=== PATIENT | female | born 1990 | race Caucasian/White ===

== ENCOUNTER 2017-06-23 22:03 | Inpatient (IN) | payer MEDICAID ==
[2017-06-23] MEDS: Lactated Ringers 1,000 ML IV SCH (23:25)
[2017-06-23] MEDS ORDERED: Nalbuphine 20 MG/1 ML Amp IVPUSH PRN (23:28)
[2017-06-23] MEDS ORDERED: Sodium Chloride 0.9% 10 ML Syringe FLUSH PRN (23:28)
[2017-06-23] MEDS ORDERED: Lidocaine 1% 50 ML MDV INJECT ONE (23:28)
[2017-06-23] MEDS ORDERED: Ondansetron 4 MG/2 ML SDV IVPUSH PRN (23:28)
[2017-06-23] MEDS ORDERED: Oxytocin/Lactated Ringers 10 UNIT/1,000 ML BAG IV SCH (23:30)
[2017-06-23] MEDS ORDERED: Bupivacaine/fentaNYL/NS 100 ML Bag EPIDUR SCH (23:45)
[2017-06-23] MEDS ORDERED: ePHEDrine 50 MG/ML SDV IVPUSH PRN (23:59)
[2017-06-23] MEDS ORDERED: diphenhydrAMINE 50 MG/ML SDV IVPUSH PRN (23:59)
[2017-06-23] MEDS ORDERED: fentaNYL 100 MCG/2 ML SDV EPIDUR PRN (23:59)
[2017-06-24] MEDS: Lactated Ringers 1,000 ML IV SCH (00:25)
--- NOTE | 2017-06-24 00:32 | PCM.PREANE ---
Preanesthetic Assessment - Anesthesia/Transfusion/Family Hx Anesthesia History: Prior Anesthesia Without Reaction Family History of Anesthesia Reaction: No - Review of Systems General: No Symptoms Pulmonary: No Symptoms Cardiovascular: No Symptoms Gastrointestinal: No Symptoms Neurological: No Symptoms Other: Reports: None - Physical Assessment Pulse: 99 O2 Sat by Pulse Oximetry: 98 Respiratory Rate: 24 Blood Pressure: 150/84 Temperature: 37.2 C ASA Class: 2 Mental Status: Alert & Oriented x3 Airway Class: Mallampati = 2 Dentition: Reports: Normal Dentition Thyro-Mental Finger Breadths: 3 Mouth Opening Finger Breadths: 3 ROM/Head Extension: Full Lungs: Clear to Auscultation, Normal Respiratory Effort Cardiovascular: Regular Rate, Regular Rhythm - Lab Values: Laboratory Last Values WBC 9.04 K/mm3 (3.98-10.04) 06/23/17 23:32 RBC 4.40 M/mm3 (3.98-5.22) 06/23/17 23:32 Hgb 12.0 gm/L (11.2-15.7) 06/23/17 23:32 Hct 36.8 % (34.1-44.9) 06/23/17 23:32 MCV 83.6 fl (79.4-94.8) 06/23/17 23:32 MCH 27.3 pg (25.6-32.2) 06/23/17 23:32 MCHC 32.6 g/dl (32.2-35.5) 06/23/17 23:32 RDW Std Deviation 43.4 fL (36.4-46.3) 06/23/17 23:32 Plt Count 251 K/mm3 (182-369) 06/23/17 23:32 MPV 11.7 fl (9.4-12.3) 06/23/17 23:32 - Allergies Allergies/Adverse Reactions: Allergies Allergy/AdvReac Type Severity Reaction Status Date / Time dextromethorphan Allergy Other Unverified 06/23/17 23:42 [From Guiatuss] [email or web address] [From Guiatuss] Allergy Other Unverified 06/23/17 23:42 pseudoephedrine Allergy Other Unverified 06/23/17 23:42 [From Guiatuss] - Acknowledgements Anesthesia Type Planned: Spinal Pt an Appropriate Candidate for the Planned Anesthesia: Yes Alternatives and Risks of Anesthesia Discussed w Pt/Guardian: Yes Pt/Guardian Understands and Agrees with Anesthesia Plan: Yes PreAnesthesia Questionnaire - CURRENT (IN HOUSE) MEDS Current Meds: Current Medications Diphenhydramine HCl (Benadryl) 25 mg IVPUSH Q6H PRN PRN Reason: Pruritis Ephedrine Sulfate (Ephedrine Sulfate) 5 mg IVPUSH ASDIRECTED PRN PRN Reason: Hypotension Fentanyl (Sublimaze) 100 mcg EPIDUR ONETIME PRN PRN Reason: Pain Fentanyl/Bupivacaine HCl (Fentanyl/Bupivacaine/Ns 2 Mcg-0.125% 100 Ml) 100 ml EPIDUR ASDIRECTED VIC Lactated Ringer's (Ringers, Lactated) 1,000 mls @ 100 mls/hr IV ASDIRECTED VIC Oxytocin/Lactated Ringer's (Pitocin In Lr 10 Units/1,000 Ml) 10 unit in 1,000 mls @ 500 mls/hr IV .CONTINUOUS VIC Nalbuphine HCl (Nubain) 10 mg IVPUSH Q2H PRN PRN Reason: Pain (moderate 4-6) Ondansetron HCl (Zofran) 4 mg IVPUSH Q4H PRN PRN Reason: Nausea/Vomiting Sodium Chloride (Saline Flush) 10 ml FLUSH ASDIRECTED PRN PRN Reason: Keep Vein Open Discontinued Medications Lidocaine HCl (Xylocaine 1%) 20 ml INJECT ONETIME ONE Stop: 06/23/17 23:29
[2017-06-24] MEDS ORDERED: Witch Hazel Medicated Pads 100/Jar TOP PRN (01:51)
[2017-06-24] MEDS ORDERED: Benzocaine/Menthol 20%-0.5% Spray 56 GM Canister TOP PRN (01:51)
[2017-06-24] MEDS ORDERED: Lanolin 100% Cream 7 GM Tube TOP PRN (01:51)
[2017-06-24] MEDS: Ibuprofen 600 MG Tab PO PRN ×4 (02:17→22:17)
--- NOTE | 2017-06-24 06:49 | PCM48HPAN ---
Post Anesthesia Note - EVALUATION WITHIN 48HRS OF ANESTHETIC Vital Signs in Normal Range: Yes Patient Participated in Evaluation: Yes Respiratory Function Stable: Yes Airway Patent: Yes Cardiovascular Function Stable: Yes Hydration Status Stable: Yes Pain Control Satisfactory: Yes Nausea and Vomiting Control Satisfactory: Yes Mental Status Recovered: Yes
[2017-06-24] MEDS ORDERED: Hydrocortisone Acetate 25 MG Supp RECTAL PRN ×2 (16:33→21:24)
[2017-06-24] MEDS ORDERED: Hydrocortisone 1% Crm 30 GM Tube TOP PRN (17:20)
[2017-06-24] MEDS ORDERED: Acetaminophen/oxyCODONE 325-5 MG Tab PO ONE (21:22)
[2017-06-24] MEDS: Docusate Sodium 100 MG Cap PO SCH (22:13)
[2017-06-25] MEDS: Ibuprofen 600 MG Tab PO PRN (08:24)
[2017-06-25] MEDS: Docusate Sodium 100 MG Cap PO SCH (08:25)
--- NOTE | 2017-06-25 08:53 | PCM.DCSUM1 ---
Discharge Summary - Discharge Data Discharge Date: 06/25/17 Discharge Disposition: Home, Self-Care 01 Condition: Good - Patient Instructions Diet: Usual Diet as Tolerated Activity: No Strenuous Activities Driving: May Drive Today Showering/Bathing: May Shower Notify Provider of: Fever, Increased Pain, Swelling and Redness, Drainage, Nausea and/or Vomiting - Discharge Plan Home Medications: Home Meds Pnv No.122/Iron/Folic Acid [ Multi Tablet] 1 each PO DAILY 06/24/17 [ History] Docusate Sodium [Colace] 100 mg PO BID cap 06/25/17 [Rx] Hydrocortisone Acetate [Anucort-HC] 25 mg RECTAL BID PRN supp 06/25/17 [Rx] Hydrocortisone [Hydrocortisone 1% Crm] 0 gm TOP ASDIRECTED PRN tube 06/25/17 [ Rx] Ibuprofen [IJD: Ibuprofen] 600 mg PO Q6H PRN tablet 06/25/17 [Rx] Anders Beti [Tucks] 1 pad TOP ASDIRECTED PRN pad 06/25/17 [Rx] Referrals: Jenae Bailey MD [Primary Care Provider] - (4-6 weeks) - Discharge Summary/Plan Comment DC Time >30 min.: No - General Info Date of Service: 06/25/17 Functional Status: Reports: Pain Controlled - Review of Systems General: Reports: No Symptoms HEENT: Reports: No Symptoms Pulmonary: Reports: No Symptoms Cardiovascular: Reports: No Symptoms Gastrointestinal: Reports: No Symptoms Genitourinary: Reports: No Symptoms Musculoskeletal: Reports: No Symptoms Skin: Reports: No Symptoms Neurological: Reports: No Symptoms Psychiatric: Reports: No Symptoms - Patient Data Vitals - Most Recent: Last Vital Signs Temp 36.2 C 06/25/17 06:02 Pulse 82 06/25/17 06:02 Resp 16 06/25/17 06:02 BP 135/86 06/25/17 06:02 Pulse Ox 98 06/25/17 06:02 Weight - Most Recent: 116.573 kg I&O - Last 24 hours: Intake & Output 06/24/17 06/25/17 06/25/17 22:59 06:59 14:59 Intake Total 360 Balance 360 Med Orders - Current: Current Medications Benzocaine/Menthol (Dermoplast Pain Relief [place]) 0 gm TOP ASDIRECTED PRN PRN Reason: Perineal Comfort Measure Last Admin: 06/24/17 02:16 Dose: 1 canister Docusate Sodium (Colace) 100 mg PO BID VIC Last Admin: 06/25/17 08:25 Dose: 100 mg Emollient Ointment (Lansinoh Hpa) 0 gm TOP ASDIRECTED PRN PRN Reason: Sore Nipples Hydrocortisone (Hydrocortisone 1% Crm) 0 gm TOP ASDIRECTED PRN PRN Reason: Hemorrhoids Last Admin: 06/24/17 17:46 Dose: 1 drop Hydrocortisone Acetate (Anucort-Hc) 25 mg RECTAL BID PRN PRN Reason: hemmroids Last Admin: 06/24/17 22:15 Dose: 25 mg Ibuprofen (Motrin) 600 mg PO Q6H PRN PRN Reason: Mild pain or fever Last Admin: 06/25/17 08:24 Dose: 600 mg Witch Beti (Tucks) 1 pad TOP ASDIRECTED PRN PRN Reason: Hemorrhoid pain Last Admin: 06/24/17 02:16 Dose: 1 container Discontinued Medications Diphenhydramine HCl (Benadryl) 25 mg IVPUSH Q6H PRN PRN Reason: Pruritis Ephedrine Sulfate (Ephedrine Sulfate) 5 mg IVPUSH ASDIRECTED PRN PRN Reason: Hypotension Fentanyl (Sublimaze) 100 mcg EPIDUR ONETIME PRN PRN Reason: Pain Fentanyl/Bupivacaine HCl (Fentanyl/Bupivacaine/Ns 2 Mcg-0.125% 100 Ml) 100 ml EPIDUR ASDIRECTED [facility] Lactated Ringer's (Ringers, Lactated) 1,000 mls @ 100 mls/hr IV ASDIRECTED [facility] Last Admin: 06/24/17 00:25 Dose: 999 mls/hr Oxytocin/Lactated Ringer's (Pitocin In Lr 10 Units/1,000 Ml) 10 unit in 1,000 mls @ 500 mls/hr IV .CONTINUOUS VIC Last Admin: 06/24/17 00:51 Dose: 500 mls/hr Lidocaine HCl (Xylocaine 1%) 20 ml INJECT ONETIME ONE Stop: 06/23/17 23:29 Nalbuphine HCl (Nubain) 10 mg IVPUSH Q2H PRN PRN Reason: Pain (moderate 4-6) Ondansetron HCl (Zofran) 4 mg IVPUSH Q4H PRN PRN Reason: Nausea/Vomiting Oxycodone/Acetaminophen (Percocet 325-5 Mg) 2 tab PO ONETIME ONE Stop: 06/24/17 21:23 Last Admin: 06/24/17 22:13 Dose: 2 tab Sodium Chloride (Saline Flush) 10 ml FLUSH ASDIRECTED PRN PRN Reason: Keep Vein Open - Exam General: Reports: Alert, Oriented HEENT: Reports: Pupils Equal, Pupils Reactive, EOMI, Mucous Membr. Moist/[place] Neck: Reports: Supple Lungs: Reports: Clear to Auscultation, Normal Respiratory Effort Cardiovascular: Reports: Regular Rate, Regular Rhythm GI/Abdominal Exam: Normal Bowel Sounds, Soft, Non-Tender, No Organomegaly, No Distention, No Abnormal Bruit, No Mass, Pelvis Stable (Female) Exam: Normal External Exam, Normal Speculum Exam, Normal Bimanual Exam Back Exam: Reports: Normal Inspection, Full Range of Motion Extremities: Normal Inspection, Normal Range of Motion, Non-Tender, No Pedal Edema, Normal Capillary Refill Skin: Reports: Warm, Dry, Intact Wound/Incisions: Reports: Healing Well Neurological: Reports: No New Focal Deficit Psy/Mental Status: Reports: Alert, Normal Affect, Normal Mood *Q Meaningful Use (DIS) - VTE *Q VTE Criteria *Q: - Stroke *Q Stroke Criteria *Q: - AMI *Q AMI Criteria *Q:
--- NOTE | 2017-07-06 09:05 | PCM.LDHP ---
L&D History of Present Illness - General Date of Service: 06/24/17 Admit Problem/Dx: Admission Diagnosis/Problem Admission Diagnosis/Problem Source of Information: Patient History Limitations: Reports: No Limitations - History of Present Illness Pain Score: 7 Present Illness Comments:: Admitted with painful contractions in labor at term - Related Data Allergies/Adverse Reactions: Allergies Allergy/AdvReac Type Severity Reaction Status Date / Time No Known Allergies Allergy Verified 06/24/17 03:44 Home Medications: Home Meds Pnv No.122/Iron/Folic Acid [ Multi Tablet] 1 each PO DAILY 06/24/17 [ History] Docusate Sodium [Colace] 100 mg PO BID cap 06/25/17 [Rx] Hydrocortisone Acetate [Anucort-HC] 25 mg RECTAL BID PRN supp 06/25/17 [Rx] Hydrocortisone [Hydrocortisone 1% Crm] 0 gm TOP ASDIRECTED PRN tube 06/25/17 [ Rx] Ibuprofen [IJD: Ibuprofen] 600 mg PO Q6H PRN tablet 06/25/17 [Rx] Anders Beti [Tucks] 1 pad TOP ASDIRECTED PRN pad 06/25/17 [Rx] 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: - Past Surgical History HEENT Surgical History: Reports: Oral Surgery Social & Family History - Family History Family Medical History: Noncontributory - Tobacco Use Smoking Status *Q: Former Smoker Years of Tobacco use: 4 Packs/Tins Daily: 0.5 Used Tobacco, but Quit: Yes Month Tobacco Last Used: 09/2016 - Caffeine Use Caffeine Use: Reports: Soda Other Caffeine Use: two daily - Recreational Drug Use Recreational Drug Use: No H&P Review of Systems - Review of Systems: Review Of Systems: See Below General: Reports: No Symptoms HEENT: Reports: No Symptoms Pulmonary: Reports: No Symptoms Cardiovascular: Reports: No Symptoms Gastrointestinal: Reports: No Symptoms Genitourinary: Reports: No Symptoms Musculoskeletal: Reports: No Symptoms Skin: Reports: No Symptoms Psychiatric: Reports: No Symptoms Neurological: Reports: No Symptoms Hematologic/Lymphatic: Reports: No Symptoms Immunologic: Reports: No Symptoms L&D Exam - Exam Exam: See Below - Vital Signs Vital Signs: Last Vital Signs Temp 36.2 C 06/25/17 06:02 Pulse 82 06/25/17 06:02 Resp 16 06/25/17 06:02 BP 135/86 06/25/17 06:02 Pulse Ox 98 06/25/17 06:02 Weight: 116.573 kg - OB Specific Contraction Intensity: Moderate to Strong Presentation: Vertex - Mackenzie Score Mackenzie Score Cervix Position: Midposition - Exam General: Alert, Oriented HEENT: PERRLA, Conjunctiva Clear, EACs Clear, EOMI, Hearing Intact, Mucosa Moist & [place], Nares Patent, Normal Nasal Septum, Posterior Pharynx Clear, TMs Clear Neck: Supple, Trachea Midline Lungs: Clear to Auscultation, Normal Respiratory Effort Cardiovascular: Regular Rate, Regular Rhythm GI/Abdominal Exam: Normal Bowel Sounds, Soft, Non-Tender, No Organomegaly, No Distention, No Abnormal Bruit, No Mass, Pelvis Stable Genitourinary: Normal external exam, Normal bimanual exam, Normal speculum exam Back Exam: Normal Inspection, Full Range of Motion Extremities: Normal Inspection, Normal Range of Motion, Non-Tender, No Pedal Edema, Normal Capillary Refill Skin: Warm, Dry, Intact Neurological: Cranial Nerves Intact, Reflexes Equal Bilateral Psychiatric: Alert, Normal Affect, Normal Mood - Patient Data Result Diagrams: 06/23/17 23:32 Problem List Initiated/Reviewed/Updated: Yes Orders Last 24hrs: Term labor. Anesthesia PRN. Anticipate .
== END 2017-06-25 11:00 | disposition home or self-care (01) | DRG 775 ==
LOC: JD.OBCHECK 22:03 → JD.OB 22:03 → JD.OBCHECK 23:27 → JD.OB 23:28 → OBSVTOIN 06-24 00:50
PROVIDERS: ADMIT Obstetrics & Gynecology; ATTEND Obstetrics & Gynecology
PROC: 10E0XZZ Delivery of Products of Conception, External Approach (ICD-10-PCS; principal; 2017-06-24)
PROC: 0HQ9XZZ Repair Perineum Skin, External Approach (ICD-10-PCS; 2017-06-24)
PROC: 00HU33Z Insertion of Infusion Device into Spinal Canal, Percutaneous Approach (ICD-10-PCS; 2017-06-24)
PROC: 3E0R3BZ Introduction of Anesthetic Agent into Spinal Canal, Percutaneous Approach (ICD-10-PCS; 2017-06-24)
DX: O42.02 Full-term premature rupture of membranes, onset of labor within 24 hours of rupture (principal); O70.0 First degree perineal laceration during delivery; Z3A.40 40 weeks gestation of pregnancy; Z37.0 Single live birth; Z87.891 Personal history of nicotine dependence
CPT/HCPCS: 36415; 59300; 59409; 85027; A9270-GY; J2590; J7120

== ENCOUNTER 2017-08-29 08:48 | Emergency (ER) | payer MEDICAID ==
--- NOTE | 2017-08-29 09:14 | EDM.PDOC ---
ED HPI GENERAL MEDICAL PROBLEM - General Chief Complaint: ENT Problem Stated Complaint: EAR PAIN BOTH EARS Time Seen by Provider: 08/29/17 09:02 Source of Information: Reports: Patient History Limitations: Reports: No Limitations - History of Present Illness INITIAL COMMENTS - FREE TEXT/NARRATIVE: The patient presents with bilateral ear pain. This started yesterday. She has a slight cough and congestion. She has no history of ear infections that she can remember. She has a fever and chills. She has no chest pain, shortness or breath, abdominal pain, nausea or vomiting. Onset: Gradual Duration: Day(s): (Yesterday) Location: Reports: Other (ears) Quality: Reports: Sharp Severity: Moderate Improves with: Reports: None Worsens with: Reports: None Associated Symptoms: Reports: Cough, Fever/Chills. 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 Denies: Shortness of Breath Cardiovascular: Reports: No Symptoms Endocrine: Reports: No Symptoms GI/Abdominal: Reports: No Symptoms : Reports: No Symptoms Musculoskeletal: Reports: No Symptoms ED EXAM, ENT - Physical Exam Exam: See Below Exam Limited By: No Limitations General Appearance: Alert, No Apparent Distress Ears: Normal External Exam, TM Bulging, TM Dullness, TM Erythema Nose: Normal Inspection Mouth/Throat: Normal Inspection Head: Atraumatic, Normocephalic Neck: Normal Inspection Respiratory/Chest: No Respiratory Distress, Lungs Clear, Normal Breath Sounds Cardiovascular: Regular Rate, Rhythm, No Edema, No Murmur GI/Abdominal: Soft, Non-Tender, No Organomegaly, No Mass Back: Normal Inspection Extremities: Normal Inspection Course - Vital Signs Last Recorded V/S: Last Vital Signs Temp 98.4 F 08/29/17 09:00 Pulse 108 H 08/29/17 09:00 Resp 16 08/29/17 09:00 BP 113/91 H 08/29/17 09:00 Pulse Ox 97 08/29/17 09:00 Departure - Departure Time of Disposition: :15 Disposition: Home, Self-Care 01 Condition: Good Clinical Impression: Otitis media Qualifiers: Otitis media type: serous Chronicity: acute Laterality: bilateral Recurrence: not specified as recurrent Qualified Code(s): H65.03 - Acute serous otitis media , bilateral - Discharge Information Prescriptions: Amoxicillin 2 cap PO BID #40 tab Referrals: Jenae Bailey MD [Primary Care Provider] - Additional Instructions: Take the amoxicillin 2 pills 2 times per day for 10 days. Take tylenol or motrin for pain. Drink plenty of fluids. Please return if you are worse.
== END 2017-08-29 09:30 | disposition home or self-care (01) ==
LOC: JD.ED 08:48
DX: H65.03 Acute serous otitis media, bilateral (principal); F17.210 Nicotine dependence, cigarettes, uncomplicated
CPT/HCPCS: 99283

== ENCOUNTER 2020-03-02 20:57 | Emergency (ER) | payer MEDICAID, OTHER ==
--- NOTE | 2020-03-02 22:09 | EDM.PDOC ---
ED HPI GENERAL MEDICAL PROBLEM - General Chief Complaint: General Stated Complaint: HEMROIDS AND SKIN TAGS REMOVED POSSIBLE INFECTION Time Seen by Provider: 03/02/20 21:30 Source of Information: Reports: Patient History Limitations: Reports: No Limitations - History of Present Illness INITIAL COMMENTS - FREE TEXT/NARRATIVE: The patient presents with rectal pain. She had skin tags and hemorrhoids removed [address] Layton. The pain was bad on and Dr Layton gave her some percocet. The pain has increased with bowel movements. She has tearing in her rectum with some bowel movements. She saw the sutures come out. She has no dysuria but her urine is concentrated. Onset: Gradual Duration: Day(s): Location: Reports: Abdomen, Other (rectum) Quality: Reports: Sharp Severity: Moderate Improves with: Reports: None Worsens with: Reports: None Associated Symptoms: Reports: No Other Symptoms rectum Pain Score (Numeric/FACES): 7 - Related Data Allergies Allergy/AdvReac Type Severity Reaction Status Date / Time No Known Allergies Allergy Verified 03/02/20 21:24 Home Meds: Home Meds . 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: - Past Surgical History HEENT Surgical History: Reports: Oral Surgery Social & Family History - Family History Family Medical History: Noncontributory - Tobacco Use Smoking Status *Q: Current Every Day Smoker Years of Tobacco use: 9 Packs/Tins Daily: 0.2 - Caffeine Use Caffeine Use: Reports: None Other Caffeine Use: two daily - Recreational Drug Use Recreational Drug Use: No ED ROS GENERAL - Review of Systems Review Of Systems: See Below Constitutional: Reports: No Symptoms HEENT: Reports: No Symptoms Respiratory: Reports: No Symptoms Cardiovascular: Reports: No Symptoms Endocrine: Reports: No Symptoms GI/Abdominal: Reports: Abdominal Pain, Other (rectal pain). Denies: Nausea, Vomiting : Reports: No Symptoms Musculoskeletal: Reports: No Symptoms ED EXAM, GENERAL - Physical Exam Exam: See Below Exam Limited By: No Limitations General Appearance: Alert, No Apparent Distress Ears: Normal External Exam Nose: Normal Inspection Head: Atraumatic, Normocephalic Neck: Normal Inspection Respiratory/Chest: No Respiratory Distress, Lungs Clear, Normal Breath Sounds Cardiovascular: Regular Rate, Rhythm, No Edema, No Murmur GI/Abdominal: Soft, Non-Tender, No Organomegaly, No Mass Rectal (Female) Exam: Other (No active bleeding. Mild yellow/white discharge. Fissure to the anterior rectum.) Course - Vital Signs Last Recorded V/S: Last Vital Signs Temp 98.7 F 03/02/20 21:21 Pulse 96 03/02/20 21:21 Resp 19 03/02/20 21:21 BP 137/65 03/02/20 21:21 Pulse Ox 99 03/02/20 21:21 - Orders/Labs/Meds Orders: Active Orders 24 hr Category Date Time Status CULTURE URINE [RM] Stat Lab 03/02/20 21:50 Received HYDROmorphone [Dilaudid] Med 03/02/20 22:21 Once 1 mg IM ONETIME ONE Ketorolac [Toradol] Med 03/02/20 22:22 Once 60 mg IM ONETIME ONE Labs: Laboratory Tests 03/02/20 Range/Units 21:50 Urine Color Yellow (Yellow) Urine Appearance Clear (Clear) Urine pH 7.0 (5.0-8.0) Ur Specific [place] 1.020 (1.005-1.030) Urine Protein Negative (Negative) Urine Glucose (UA) Negative (Negative) Urine Ketones Negative (Negative) Urine Occult Blood Negative (Negative) Urine Nitrite Negative (Negative) Urine Bilirubin Negative (Negative) Urine Urobilinogen 0.2 (0.2-1.0) Ur Leukocyte Esterase Trace H (Negative) Urine RBC 0-5 (0-5) /hpf Urine WBC 5-10 H (0-5) /hpf Ur Squamous Epith Cells 0-5 (0-5) /hpf Urine Bacteria Few (FEW) /hpf Urine Mucus Few (FEW) /hpf - Re-Assessments/Exams Free Text/Narrative Re-Assessment/Exam: 03/02/20 22:15 I ordered a UA and it appears she has a UTI. I will also get her on some keflex. I talked with Dr Layton and she was okay with the antibiotic but she feels this is normal discharge from this procedure. She wanted her to continue the miralax and pain meds. 03/02/20 22:22 I will give her a shot of toradol and dilaudid here. Departure - Departure Time of Disposition: 22:35 Disposition: Home, Self-Care 01 Condition: Good Clinical Impression: Rectal pain, Rectal fissure - Discharge Information *PRESCRIPTION DRUG MONITORING PROGRAM REVIEWED*: Not Applicable *COPY OF PRESCRIPTION DRUG MONITORING REPORT IN PATIENT JYOTI: Not Applicable Referrals: Peggy Felton PA-C [Primary Care Provider] - Forms: ED Department Discharge Additional Instructions: Drink plenty of fluids such as water and even sodas and juices. Normally I do not recommend them but they can cause loose stools. Take miralax a capfull 2 times per day. Take the keflex 3 times per day. Do the sits baths after each bowel movement. Follow up with Dr Layton. Please return if you are worse. Sepsis Event Note (ED) - Evaluation Sepsis Screening Result: No Definite Risk - Focused Exam Vital Signs: Vital Signs Temp Pulse Resp BP Pulse Ox 03/02/20 21:21 98.7 F 96 19 137/65 99 - My Orders Last 24 Hours: My Active Orders 03/02/20 21:50 CULTURE URINE [RM] Stat 03/02/20 22:21 HYDROmorphone [Dilaudid] 1 mg IM ONETIME ONE 03/02/20 22:22 Ketorolac [Toradol] 60 mg IM ONETIME ONE - Assessment/Plan Last 24 Hours: My Active Orders 03/02/20 21:50 CULTURE URINE [RM] Stat 03/02/20 22:21 HYDROmorphone [Dilaudid] 1 mg IM ONETIME ONE 03/02/20 22:22 Ketorolac [Toradol] 60 mg IM ONETIME ONE
[2020-03-02] MEDS ORDERED: HYDROmorphone 1 MG/ML Syringe IM ONE (22:21)
[2020-03-02] MEDS ORDERED: Ketorolac 60 MG/2 ML SDV IM ONE (22:22)
== END 2020-03-02 22:53 | disposition home or self-care (01) ==
LOC: JD.ED 20:57
DX: K60.2 Anal fissure, unspecified (principal); F17.210 Nicotine dependence, cigarettes, uncomplicated
CPT/HCPCS: 81001; 87086; 96372; 99283; J1170; J1885

== ENCOUNTER 2020-08-12 16:37 | Emergency (ER) | payer OTHER ==
[2020-08-12] MEDS ORDERED: Ketorolac 60 MG/2 ML SDV IM ONE (17:27)
--- NOTE | 2020-08-12 17:33 | EDM.PDOC ---
ED HPI GENERAL MEDICAL PROBLEM - General Chief Complaint: General Stated Complaint: SWOLLEN RIB CAGE Time Seen by Provider: 08/12/20 16:51 Source of Information: Reports: Patient, RN Notes Reviewed History Limitations: Reports: No Limitations - History of Present Illness INITIAL COMMENTS - FREE TEXT/NARRATIVE: Patient is a 30-year-old female presenting to the emergency department with complaints of right rib pain. She states she was seen at the [facility] walk-in clinic on Wednesday and diagnosed with costochondritis. No x-rays were completed at that time. She was started on a Medrol Dosepak as well as Flexeril for pain. She states the Flexeril is not helping and is only making her tired. She has been using [id number] ibuprofen with little relief. Denies any traumatic injury to the area. She is not short of breath, however it is painful for her to take a deep breath. Denies any fever or chills. 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 ED EXAM, GENERAL - Physical Exam Exam: See Below Exam Limited By: No Limitations General Appearance: Alert, WD/WN, No Apparent Distress Respiratory/Chest: No Respiratory Distress, Lungs Clear, Normal Breath Sounds, No Accessory Muscle Use, Other (right chest wall tenderness. Worse with deep breathing.) Cardiovascular: Normal Peripheral Pulses, Regular Rate, Rhythm, No Edema, No Gallop, No JVD, No Murmur, No Rub Neurological: Alert, Oriented, CN II-XII Intact, Normal Cognition, Normal Gait, Normal Reflexes, No Motor/Sensory Deficits Psychiatric: Normal Affect, Normal Mood Skin Exam: Warm, Dry, Intact, Normal Color, No Rash Course - Vital Signs Last Recorded V/S: Last Vital Signs Temp 97.5 F 08/12/20 17:08 Pulse 103 H 08/12/20 17:08 Resp 16 08/12/20 17:08 BP 132/81 08/12/20 17:08 Pulse Ox 99 08/12/20 17:08 - Orders/Labs/Meds Meds: Medications Discontinued Medications Generic Name Dose Route Start Last Admin Trade Name Javy PRN Reason Stop Dose Admin Ketorolac Tromethamine 60 mg 08/12/20 17:27 08/12/20 17:32 Toradol IM 08/12/20 17:28 60 mg ONETIME ONE Administration - Re-Assessments/Exams Free Text/Narrative Re-Assessment/Exam: 08/12/20 19:03 No abnormalities were seen on the chest x-ray. Patient did have relief with the Toradol given. We will switch her to prednisone 40 mg daily x5 days followed by 20 mg daily x5 days and have her stop the Medrol Dosepak. I will send a short prescription for Pelham. Discharge instructions as documented. Departure - Departure Time of Disposition: 19:04 Disposition: Home, Self-Care 01 Condition: Good Clinical Impression: Costochondritis - Discharge Information *PRESCRIPTION DRUG MONITORING PROGRAM REVIEWED*: Yes *COPY OF PRESCRIPTION DRUG MONITORING REPORT IN PATIENT JYOTI: No Instructions: Costochondritis, [id number] Referrals: Peggy Felton PA-C [Primary Care Provider] - Forms: ED Department Discharge Additional Instructions: You were seen in the emergency department today for rib pain with a diagnosis of costochondritis. Chest x-ray was completed and showed showed no abnormalities. Recommend stopping your Medrol Dosepak. You can provide us prescription for prednisone. Take 2 tabs a day for 5 days followed by 1 tab a day for 5 days. Recommend routine Tylenol and ibuprofen administration. For pain not relieved by these measures, a short prescription for Pelham has been sent. Intermittent heat to the area would also be beneficial. Return to ER as needed. Sepsis Event Note (ED) - Evaluation Sepsis Screening Result: No Definite Risk
--- NOTE | 2020-08-13 08:50 | CR ---
Chest: 2 views of the chest were obtained. Comparison: No prior chest imaging is available. Heart size and mediastinum are normal. Lungs are clear. No discrete bony abnormality is appreciated. Impression: 1. Nothing acute is appreciated on 2 view chest x-ray. Diagnostic code #1
== END 2020-08-12 19:23 | disposition home or self-care (01) ==
LOC: JD.ED 16:37
DX: M94.0 Chondrocostal junction syndrome [Tietze] (principal); Z72.0 Tobacco use
CPT/HCPCS: 71046; 96372; 99283; J1885

== ENCOUNTER 2020-08-14 23:04 | Emergency (ER) | payer OTHER ==
--- NOTE | 2020-08-15 00:10 | EDM.PDOCBH ---
ED HPI GENERAL MEDICAL PROBLEM - General Chief Complaint: Behavioral/Psych Stated Complaint: PANIC ATTACK/RIB PAIN Time Seen by Provider: 08/14/20 23:39 Source of Information: Reports: Patient History Limitations: Reports: No Limitations - History of Present Illness INITIAL COMMENTS - FREE TEXT/NARRATIVE: Ms. Lofton is a pleasant 30-year-old woman the past medical history sig nificant for several psychiatric disorders, including panic attacks, for which she is treated with propranolol, alprazolam, Lamictal, and duloxetine, who now presents the ED stating that she developed a panic attack around 22:30 tonight, including symptoms of feeling dyspneic and lightheaded. She states that she took one of her prescribed alprazolam tablets around 22:45, but that when she presented to, it had not helped. By the time I evaluated her, however, she reported that she was feeling much better. The patient states that she gets a panic attack about 5 times a month, ever since she was 21 years old. 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 Here in the ED the patient's initial BP is found to be mildly elevated at 147/88, with mild tachycardia of 112 bpm. She is afebrile, saturating 99% on room air. The patient states that she got a migraine headache last week, and was diagnosed with costochondritis on 08/10/2019, for which she has been treated with steroids, Flexeril, and [place]. Other than these, the patient denies having a recent fever, chills, sore throat, ear pain, nasal or sinus congestion, cough, dyspnea, palpitations, nausea, vomiting, constipation, diarrhea, abdominal pain, urinary symptoms, recent weight gain or weight loss, recent bloody bowel movements or black bowel movements, recent joint aches, or rashes. The patient's PCP is MELLISA Chau. She has not received an influenza vaccine this season, and declined an offer to get one here in the ED. Chest Pain Score (Numeric/FACES): 7 - Related Data Allergies Allergy/AdvReac Type Severity Reaction Status Date / Time No Known Allergies Allergy Verified 08/14/20 23:12 Home Meds: Home Meds Cyclobenzaprine [Flexeril] 10 mg PO ASDIRECTED 08/12/20 [History] Ibuprofen 600 mg PO Q6H PRN 08/12/20 [History] ALPRAZolam [Alprazolam] 0.5 mg PO 08/14/20 [History] FLUoxetine [PROzac] 30 mg PO DAILY 08/14/20 [History] Propranolol HCl [Propranolol] 10 mg PO BID PRN 08/14/20 [History] Rizatriptan Benzoate [Rizatriptan] 10 mg PO ASDIRECTED PRN 08/14/20 [History] Past Medical History Neurological History: Reports: Migraines Psychiatric History: Reports: Bipolar, Depression, Panic Attack, PTSD - Infectious Disease History Infectious Disease History: Reports: Herpes - Past Surgical History HEENT Surgical History: Reports: Oral Surgery (dental extractions) Female Surgical History: Reports: Hysterectomy (partial) Social & Family History - Tobacco Use Tobacco Use Status *Q: Current Every Day Tobacco User Years of Tobacco use: 9 Packs/Tins Daily: 0.2 Packs/Tins Daily Comment: Down from 07/13 ppd - Caffeine Use Caffeine Use: Reports: None Other Caffeine Use: two daily - Alcohol Use Alcohol Use History: Yes Alcohol Use Frequency: Socially - Recreational Drug Use Recreational Drug Use: No - Living Situation & Occupation Living situation: Reports: , with Spouse, with Family (2 kids) Occupation: Unemployed ED ROS GENERAL - Review of Systems Review Of Systems: Comprehensive ROS is negative, except as noted in HPI. ED EXAM, BEHAVIORAL HEALTH - Physical Exam Exam: See Below Exam Limited By: No Limitations General Appearance: Alert, WD/WN, No Apparent Distress Eye Exam: Bilateral Eye: EOMI, Normal Inspection Ears: Normal External Exam, Hearing Grossly Normal Nose: Normal Inspection Throat/Mouth: Normal Inspection, Normal Lips, Normal Voice, No Airway Compromise Head: Atraumatic, Normocephalic Neck: Normal Inspection, Full Range of Motion Respiratory/Chest: No Respiratory Distress, Lungs Clear, Normal Breath Sounds, No Accessory Muscle Use Cardiovascular: Normal Peripheral Pulses, Regular Rate, Rhythm, No Gallop, No JVD, No Murmur, No Rub GI/Abdominal: Normal Bowel Sounds, Soft, Non-Tender, No Organomegaly, No Distention, No Abnormal Bruit, No Mass Back Exam: Normal Inspection, Full Range of Motion, NT Extremities: Normal Inspection, Normal Range of Motion, Normal Capillary Refill Neurological: Alert, Normal Cognition, No Motor/Sensory Deficits, Oriented x 3 Psychiatric: Other (Anxious) Skin Exam: Warm, Dry, Intact, Normal color, No rash COURSE, BEHAVIORAL HEALTH COMP - Course Vital Signs: Last Vital Signs Temp 36.4 C 08/14/20 23:13 Pulse 112 H 08/14/20 23:13 Resp 17 08/14/20 23:13 BP 147/88 H 08/14/20 23:13 Pulse Ox 99 08/14/20 23:13 Medical Clearance: 08/15/20 00:05 As above, the patient states that she developed a panic attack around 22:30 tonight. She took one of her prescribed Xanax tablets around 22:45, which she stated at triage had not helped her, but by the time I evaluated her, she acknowledged that she was feeling much better. She may safely be discharged home. Departure - Departure Time of Disposition: 00:05 Disposition: Home, Self-Care 01 Condition: Good Clinical Impression: Panic attack - Discharge Information *PRESCRIPTION DRUG MONITORING PROGRAM REVIEWED*: Not Applicable *COPY OF PRESCRIPTION DRUG MONITORING REPORT IN PATIENT JYOTI: Not Applicable Instructions: Panic Attack, [id number] Referrals: Pgegy Felton PA-C [Primary Care Provider] - Forms: ED Department Discharge Additional Instructions: You were seen in the emergency room after developing a panic attack, including shortness of breath and lightheadedness. Your symptoms eventually improved after taking one of your prescribed Xanax tablets. As discussed, since Xanax has a very high addiction potential, we recommend that you follow-up with your PCP, MELLISA Chau, to discuss reconsideration of Xanax as one of your regular medications. In the meantime, however, DO NOT stop the Xanax without medical supervision. If any other problems, please do not hesitate to return to the ER. Sepsis Event Note (ED) - Evaluation Sepsis Screening Result: No Definite Risk - Focused Exam Vital Signs: Vital Signs Temp Pulse Resp BP Pulse Ox 08/14/20 23:13 36.4 C 112 H 17 147/88 H 99
== END 2020-08-15 00:18 | disposition home or self-care (01) ==
LOC: JD.ED 23:04
DX: F41.0 Panic disorder [episodic paroxysmal anxiety] (principal); Z72.0 Tobacco use; Z79.899 Other long term (current) drug therapy
CPT/HCPCS: 99283

== ENCOUNTER 2020-09-08 10:54 | Emergency (ER) | payer OTHER ==
--- NOTE | 2020-09-08 11:23 | EDM.PDOC ---
ED HPI GENERAL MEDICAL PROBLEM - General Chief Complaint: General Stated Complaint: RIB PAIN Time Seen by Provider: 09/08/20 11:23 - History of Present Illness INITIAL COMMENTS - FREE TEXT/NARRATIVE: 30-year-old female presents the emergency room for a second opinion on her rib and chest wall injury. 2 nights ago the patient rolled out of bed fell reinjuring her right sided rib cage. She has developed a bruise in this area. Unfortunately this bruise is doubled in size since yesterday to today to today. Yesterday patient was seen in the walk-in clinic they did x-rays and apparently did not see anything unfortunately I do not have access to those x-rays. The patient is using some Flexeril from her initial injury at the beginning of this month with minimal success. She was diagnosed with costochondritis thought to be related to coughing around the beginning of the month. Right Chest Pain Score (Numeric/FACES): 3 - Related Data Allergies Allergy/AdvReac Type Severity Reaction Status Date / Time No Known Allergies Allergy Verified 09/08/20 11:05 Home Meds: Home Meds Cyclobenzaprine [Flexeril] 10 mg PO ASDIRECTED 08/12/20 [History] Ibuprofen 600 mg PO Q6H PRN 08/12/20 [History] ALPRAZolam [Alprazolam] 0.5 mg PO Q4H PRN 08/14/20 [History] FLUoxetine [PROzac] 30 mg PO DAILY 08/14/20 [History] Propranolol HCl [Propranolol] 10 mg PO BID PRN 08/14/20 [History] Rizatriptan Benzoate [Rizatriptan] 10 mg PO ASDIRECTED PRN 08/14/20 [History] Naproxen [Naprosyn] 500 mg PO BID #30 tab 09/08/20 [Rx] lamoTRIgine [Lamictal] 200 mg PO DAILY 09/08/20 [History] 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: Neurological History: Reports: Migraines Psychiatric History: Reports: Anxiety, Bipolar, Depression, Panic Attack, PTSD Endocrine/Metabolic History: Reports: Obesity/BMI 30+ - Infectious Disease History Infectious Disease History: Reports: Herpes - Past Surgical History HEENT Surgical History: Reports: Oral Surgery Female Surgical History: Reports: Hysterectomy Social & Family History - Family History Family Medical History: No Pertinent Family History - Tobacco Use Tobacco Use Status *Q: Current Every Day Tobacco User Years of Tobacco use: 10 Packs/Tins Daily: 0.2 - Caffeine Use Caffeine Use: Reports: Coffee, Soda, Tea Other Caffeine Use: two daily - Recreational Drug Use Recreational Drug Use: No - Living Situation & Occupation Living situation: Reports: , with Spouse, with Family (2 kids) Occupation: Unemployed ED ROS GENERAL - Review of Systems Review Of Systems: See Below Constitutional: Reports: No Symptoms HEENT: Reports: No Symptoms Respiratory: Reports: Pleuritic Chest Pain. Denies: Shortness of Breath Cardiovascular: Reports: No Symptoms GI/Abdominal: Reports: No Symptoms : Reports: No Symptoms Musculoskeletal: Reports: Other (Right-sided chest wall pain) Neurological: Reports: No Symptoms ED EXAM, GENERAL - Physical Exam Exam: See Below Exam Limited By: No Limitations General Appearance: Alert, No Apparent Distress Head: Atraumatic, Normocephalic Neck: Normal Inspection, Supple, Non-Tender, Full Range of Motion, Other (Has some bruising over the ninth rib right side anterior lateral aspect this is the area that is getting bigger she has some surrounding tenderness.). No: Lymphadenopathy (L), Lymphadenopathy (R), Tender Midline Respiratory/Chest: No Respiratory Distress, Lungs Clear, Normal Breath Sounds Cardiovascular: Regular Rate, Rhythm, No Edema, No Murmur GI/Abdominal: Normal Bowel Sounds, Soft, Non-Tender Course - Vital Signs Last Recorded V/S: Last Vital Signs Temp 36.4 C 09/08/20 11:02 Pulse 85 09/08/20 11:02 Resp 16 09/08/20 11:02 BP 138/88 09/08/20 11:02 Pulse Ox 97 09/08/20 11:02 - Re-Assessments/Exams Free Text/Narrative Re-Assessment/Exam: 09/08/20 11:55 I have assured the patient that she should continue to improve with this. It can take several weeks before the pain completely resolves. Did discuss her medication and its reasonable to use the Flexeril at nighttime but I would not use any more than that timing the ibuprofen with meals has been difficult so we will change her to Naprosyn 500 mg with the morning and evening meals. Departure - Departure Time of Disposition: 11:55 Disposition: Home, Self-Care 01 Clinical Impression: Soft tissue injury of right chest wall - Discharge Information Prescriptions: Naproxen [Naprosyn] 500 mg PO BID #30 tab Referrals: Peggy Felton PA-C [Primary Care Provider] - Forms: ED Department Discharge Additional Instructions: Return to the emergency room with any questions problems or worsening symptoms. We will change your ibuprofen, so stopped this, to naproxen. Take the naproxen twice daily with your morning and evening meals. Do not take this with ibuprofen and do not take it with steroids. While taking the naproxen use [id number] Pepcid, or famotidine 20 mg take 1 daily. Follow-up with your regular healthcare provider for follow-up on Wednesday or of this week. Sepsis Event Note (ED) - Evaluation Sepsis Screening Result: No Definite Risk - Focused Exam Vital Signs: Vital Signs Temp Pulse Resp BP Pulse Ox 09/08/20 11:02 36.4 C 85 16 138/88 97
== END 2020-09-08 12:10 | disposition home or self-care (01) ==
LOC: JD.ED 10:54
DX: S20.211A Contusion of right front wall of thorax, initial encounter (principal); E66.9 Obesity, unspecified; Z68.36 Body mass index [BMI] 36.0-36.9, adult; Z72.0 Tobacco use; Z79.899 Other long term (current) drug therapy; W06.XXXA Fall from bed, initial encounter
CPT/HCPCS: 99283

== ENCOUNTER 2020-11-19 16:06 | Emergency (ER) | payer OTHER ==
--- NOTE | 2020-11-19 17:03 | EDM.PDOC ---
ED HPI GENERAL MEDICAL PROBLEM - General Chief Complaint: Lower Extremity Injury/Pain Stated Complaint: RT ANKLE SWELLING/PAIN Time Seen by Provider: 11/19/20 16:44 Source of Information: Reports: Patient, RN Notes Reviewed History Limitations: Reports: No Limitations - History of Present Illness INITIAL COMMENTS - FREE TEXT/NARRATIVE: Patient is a 30-year-old female who presents to the ER for evaluation of a right ankle injury. Notes that she was carrying a package up her stairs, when she ended up falling backwards and she dropped the package onto her right foot/ankle. Notes that she was able to walk on it however was very painful. Notes that she took 600 mg ibuprofen prior to coming to the ER, roughly at around 3 PM. Does state that there has been some swelling in associated ankle. Denying any numbness or tingling in the extremity. Patient denies chance of states that she has had a hysterectomy. Patient denies any other sick-like symptoms, fever/chills, cough/shortness of breath, nausea/vomiting/diarrhea. Treatments DEPARTMENT EDITOR: Reports: NSAIDS Other Treatments DEPARTMENT EDITOR: 600 mg ibu Right Ankle Pain Score (Numeric/FACES): 8 - Related Data Allergies Allergy/AdvReac Type Severity Reaction Status Date / Time No Known Allergies Allergy Verified 11/19/20 16:24 Home Meds: Home Meds Cyclobenzaprine [Flexeril] 10 mg PO ASDIRECTED 08/12/20 [History] Ibuprofen 600 mg PO Q6H PRN 08/12/20 [History] ALPRAZolam [Alprazolam] 0.5 mg PO Q4H PRN 08/14/20 [History] FLUoxetine [PROzac] 30 mg PO DAILY 08/14/20 [History] Propranolol HCl [Propranolol] 10 mg PO BID PRN 08/14/20 [History] Rizatriptan Benzoate [Rizatriptan] 10 mg PO ASDIRECTED PRN 08/14/20 [History] Naproxen [Naprosyn] 500 mg PO BID #30 tab 09/08/20 [Rx] lamoTRIgine [Lamictal] 200 mg PO DAILY 09/08/20 [History] 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: Neurological History: Reports: Migraines Psychiatric History: Reports: Anxiety, Bipolar, Depression, Panic Attack, PTSD Endocrine/Metabolic History: Reports: Obesity/BMI 30+ - Infectious Disease History Infectious Disease History: Reports: Herpes - Past Surgical History HEENT Surgical History: Reports: Oral Surgery Female Surgical History: Reports: Hysterectomy Social & Family History - Family History Family Medical History: No Pertinent Family History - Caffeine Use Caffeine Use: Reports: Coffee, Soda, Tea Other Caffeine Use: two daily - Living Situation & Occupation Living situation: Reports: , with Spouse, with Family (2 kids) Occupation: Unemployed Review of Systems - Review of Systems Review Of Systems: Comprehensive ROS is negative, except as noted in HPI. ED EXAM, GENERAL - Physical Exam Exam: See Below Exam Limited By: No Limitations General Appearance: Alert, WD/WN, No Apparent Distress Respiratory/Chest: No Respiratory Distress, Lungs Clear, Normal Breath Sounds, No Accessory Muscle Use, Chest Non-Tender Cardiovascular: Normal Peripheral Pulses, Regular Rate, Rhythm, No Edema Peripheral Pulses: 2+: Dorsalis Pedis (L), Dorsalis Pedis (R) Extremities: Normal Capillary Refill, Limited Range of Motion (of right akle d/t pain, there is some swelling of the joint.) Neurological: Alert, Oriented, Normal Cognition, No Motor/Sensory Deficits Psychiatric: Normal Affect, Normal Mood Skin Exam: Warm, Dry, Intact, Normal Color, No Rash Course - Vital Signs Last Recorded V/S: Last Vital Signs Temp 98.1 F 11/19/20 16:24 Pulse 89 11/19/20 16:24 Resp 16 11/19/20 16:24 BP 123/84 11/19/20 16:24 Pulse Ox 95 11/19/20 16:24 - Orders/Labs/Meds Orders: Active Orders 24 hr Category Date Time Status Ankle Min 3V Rt [CR] Stat Exams 11/19/20 16:52 Ordered DME for Discharge [COMM] Routine Oth 11/19/20 17:46 Ordered - Re-Assessments/Exams Free Text/Narrative Re-Assessment/Exam: 11/19/20 17:12 Patient presents to the ER for a right ankle injury, we will go ahead and get x- rays of the ankle for evaluation. Patient states she is okay for pain management at this time. 11/19/20 17:43 Ankle x-ray has been performed, demonstrates no acute fractures or other bony abnormalities of the ankle joint. Official radiology read is still pending however this was read by myself and Dr. Goldman. We will likely place the patient in an air splint, for immobilization of the joint, to provide stabil ization, and prevent further injury. Departure - Departure Time of Disposition: 17:52 Disposition: Home, Self-Care 01 Condition: Good Clinical Impression: Moderate right ankle sprain Qualifiers: Encounter type: initial encounter Qualified Code(s): S93.401A - Sprain of unspecified ligament of right ankle, initial encounter - Discharge Information *PRESCRIPTION DRUG MONITORING PROGRAM REVIEWED*: No *COPY OF PRESCRIPTION DRUG MONITORING REPORT IN PATIENT JYOTI: No Instructions: Ankle Sprain, [id number] Referrals: Peggy Felton PA-C [Primary Care Provider] - Forms: ED Department Discharge Additional Instructions: You have been evaluated in the ED for your right ankle injury. Your x-ray demonstrated no acute fractures or other bony abnormalities of your right ankle. Please use ice as tolerated to the affected area. Please try to elevate the affected area to relieve swelling. You were placed into an air cast type splint, to provide immobilization/stabilization of the joint, and to prevent further injury of the right ankle. You may take Tylenol 500 mg or ibuprofen 600mg q6 hrs for pain relief. Please do so until you have a tolerable level of pain with activity. Do not exceed 4000mg Tylenol or 3200mg ibuprofen in a 24 hour time period. Please return to ED if your symptoms should change or worsen. Sepsis Event Note (ED) - Evaluation Sepsis Screening Result: No Definite Risk - Focused Exam Vital Signs: Vital Signs Temp Pulse Resp BP Pulse Ox 11/19/20 16:24 98.1 F 89 16 123/84 95 - My Orders Last 24 Hours: My Active Orders 11/19/20 16:52 Ankle Min 3V Rt [CR] Stat 11/19/20 17:46 DME for Discharge [COMM] Routine - Assessment/Plan Last 24 Hours: My Active Orders 11/19/20 16:52 Ankle Min 3V Rt [CR] Stat 11/19/20 17:46 DME for Discharge [COMM] Routine
--- NOTE | 2020-11-19 18:24 | CR ---
Right ankle: 4 views of the right ankle were obtained. Comparison: No prior ankle study is available. Mild soft tissue swelling is noted. Ankle mortise is symmetric. No acute fracture, dislocation or other bony abnormality is appreciated. Impression: 1. Mild soft tissue swelling. 2. No bony abnormality is appreciated. Diagnostic code #2
== END 2020-11-19 18:25 | disposition home or self-care (01) ==
LOC: JD.ED 16:06
DX: S93.401A Sprain of unspecified ligament of right ankle, initial encounter (principal); E66.9 Obesity, unspecified; Z68.34 Body mass index [BMI] 34.0-34.9, adult; W20.8XXA Other cause of strike by thrown, projected or falling object, initial encounter
CPT/HCPCS: 73610-26-RT; 73610-RT; 99282; 99283

== ENCOUNTER 2021-01-02 07:44 | Emergency (ER) | payer OTHER ==
[2021-01-02] MEDS ORDERED: Lidocaine 1% 10 ML MDV INJECT ONE (08:12)
--- NOTE | 2021-01-02 08:18 | EDM.PDOC ---
ED HPI GENERAL MEDICAL PROBLEM - General Chief Complaint: Lower Extremity Injury/Pain Stated Complaint: ISSUES WITH KNEE BRACE AND BLEEDING POST SURGERY Time Seen by Provider: 01/02/21 08:08 Source of Information: Reports: Patient History Limitations: Reports: No Limitations - History of Present Illness INITIAL COMMENTS - FREE TEXT/NARRATIVE: 30-year-old female presents to the ED for evaluation of bleeding from surgical wounds that were performed yesterday by Dr. Maricarmen Guy orthopedic surgeon at [facility] in [place]. Patient underwent patella realignment procedure y esterday and states that subsequently she fell x4 times after trying to walk on the leg after surgery. Apparently her knee brace was not locked in full extension. Patient is appreciated persistent bleeding from a couple of the surgical wounds. Most of them are arthroscopic wounds but the longer midline incision is continued to bleed from the superior surface. Onset: Sudden Onset Date: 01/01/21 Onset Time: 16:00 Duration: Hour(s):, Constant Location: Reports: Lower Extremity, Right (Persistent bleeding from surgical wound right knee performed yesterday.) Quality: Reports: Ache, Throbbing Severity: Moderate Improves with: Reports: None Worsens with: Reports: None Context: Reports: Other (Postoperative surgical wounds right knee due to rhoades llofemoral realignment procedure done yesterday.). 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) (Only pain medications as prescribed.) Right Leg Pain Score (Numeric/FACES): 8 - Related Data Allergies Allergy/AdvReac Type Severity Reaction Status Date / Time No Known Allergies Allergy Verified 01/02/21 07:55 Home Meds: Home Meds Cyclobenzaprine [Flexeril] 10 mg PO ASDIRECTED 08/12/20 [History] Ibuprofen 600 mg PO Q6H PRN 08/12/20 [History] FLUoxetine [PROzac] 40 mg PO DAILY 08/14/20 [History] Propranolol HCl [Propranolol] 10 mg PO BID PRN 08/14/20 [History] Rizatriptan Benzoate [Rizatriptan] 10 mg PO ASDIRECTED PRN 08/14/20 [History] lamoTRIgine [Lamictal] 200 mg PO DAILY 09/08/20 [History] Doxycycline [Vibra-Tabs] 100 mg PO Q12HR #14 tab 01/02/21 [Rx] Hydrocodone/Acetaminophen [Hydrocodone-Acetamin 5-325 mg] 1 tab PO Q4H PRN 01/02/21 [History] Naproxen [Naprosyn] 500 mg PO BID PRN 01/02/21 [History] oxyCODONE HCl/Acetaminophen [Percocet 5-325 mg Tablet] 1 - 2 each PO Q4H PRN #20 tablet 01/02/21 [Rx] Past Medical History - Past Health History Medical/Surgical History: Denies 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: Musculoskeletal History: Reports: Arthritis Neurological History: Reports: Migraines Psychiatric History: Reports: Anxiety, Bipolar, Depression, Panic Attack, PTSD Endocrine/Metabolic History: Reports: Obesity/BMI 30+ - Infectious Disease History Infectious Disease History: Reports: Herpes - Past Surgical History HEENT Surgical History: Reports: Oral Surgery Female Surgical History: Reports: Hysterectomy Social & Family History - Family History Family Medical History: No Pertinent Family History - Tobacco Use Tobacco Use Status *Q: Current Every Day Tobacco User Years of Tobacco use: 10 Packs/Tins Daily: 0.1 - Caffeine Use Caffeine Use: Reports: Coffee, Soda Other Caffeine Use: two daily - Recreational Drug Use Recreational Drug Use: No - Living Situation & Occupation Living situation: Reports: , with Spouse, with Family (2 kids) Occupation: Unemployed Review of Systems - Review of Systems Review Of Systems: See Below Constitutional: Denies: Chills, Diaphoresis, Fever, Other Eyes: Reports: No Symptoms Ears: Reports: No Symptoms Nose: Reports: No Symptoms GI/Abdominal: Reports: No Symptoms Genitourinary: Reports: No Symptoms Musculoskeletal: Reports: Other (Underwent patella for femoral realignment surgery with Dr. Guy orthopedic surgeon in [place] yesterday.) Skin: Reports: Other (Bleeding from superior portion of midline surgical wound right knee) Neurological: Reports: No Symptoms ED EXAM, GENERAL - Physical Exam Exam: See Below Exam Limited By: No Limitations General Appearance: Alert, WD/WN, No Apparent Distress, Other (Temperature is 36.4 degrees. Heart rate ninety-three and sinus. Respiratory is eighteen with O2 sats of 99% room air. BP 08/03/1964) Eye Exam: Bilateral Eye: Normal Inspection Extremities: Other (Examination of the right lower extremity shows quite a bit of swelling around the knee postoperatively. Associated ecchymoses around the knee and inferior to the knee particularly laterally. She has four puncture wounds one lateral medial to the knee from arthroscopic wounds which are not actively) Neurological: Alert, Oriented, CN II-XII Intact, Normal Cognition Psychiatric: Normal Affect, Normal Mood Skin Exam: Warm, Dry, Normal Color, Other (Bleeding from postoperative surgical wounds right knee.) ED TRAUMA EXTREMITY PROCEDURES - Laceration/Wound Repair Right Lower Mid-Anterior Leg Lac/Wound Length In cm: 1.5 (Postop surgical wound just inferior to the tibial tuberosity right leg) Appearance: Subcutaneous, Clean Distal NVT: Neuro & Vascular Intact Anesthetic Type: Local Local Anesthetic Volume: 2cc Skin Prep: Chlorhexidine (Hibiciens) Closed With: Sutures Suture Size: 4-0 # of Sutures: 3 Right Upper Leg Lac/Wound Length In cm: 1.5 (1 day postop wound dehiscence) Appearance: Subcutaneous, Linear Distal NVT: Neuro & Vascular Intact Anesthetic Type: Local Local Anesthesia - Lidocaine (Xylocaine): 1% Plain Local Anesthetic Volume: 2cc Skin Prep: Chlorhexidine (Hibiciens) Closed With: Sutures Suture Size: 4-0 # of Sutures: 3 Suture Type: Nylon, Interrupted, Simple Course - Vital Signs Last Recorded V/S: Last Vital Signs Temp 36.4 C 01/02/21 07:52 Pulse 93 01/02/21 07:52 Resp 18 01/02/21 07:52 BP 123/65 01/02/21 07:52 Pulse Ox 99 01/02/21 07:52 - Orders/Labs/Meds Meds: Medications Discontinued Medications Generic Name Dose Route Start Last Admin Trade Name Freq PRN Reason Stop Dose Admin Lidocaine HCl 10 ml 01/02/21 08:12 01/02/21 08:24 Lidocaine 1% 10 Ml Mdv INJECT 01/02/21 08:13 10 ml ONETIME ONE Administration - Radiology Interpretation Free Text/Narrative:: 30-year-old female presents to the ED with active bleeding from superior surface of the midline anterior leg surgical wound. Patient underwent patellofemoral realignment surgery with Dr. Blue orthopedic surgeon in [facility] in [place] yesterday. Three other puncture wounds from arthroscopic wounds are open minimally and are not actively bleeding and will be left to heal on their own at this time. Due to persistent oozing and bleeding from the superior aspect of the midline surgical wound will be sutured under local anesthetic. - Re-Assessments/Exams Free Text/Narrative Re-Assessment/Exam: 01/02/21 08:32 due to persistent oozing of blood from the superior aspect of the surgical wound just inferior to the patella the wound was anesthetized with 1% lidocaine and sutured x3 with 4-0 nylon suture. Sutures will need to be removed in 10 days time. Patient tolerated the procedure well. She will continue to dress her wounds and cleanse them daily at home as instructed. Departure - Departure Time of Disposition: 08:30 Disposition: Home, Self-Care 01 Condition: Fair Clinical Impression: Bleeding from wound - Discharge Information *PRESCRIPTION DRUG MONITORING PROGRAM REVIEWED*: Not Applicable *COPY OF PRESCRIPTION DRUG MONITORING REPORT IN PATIENT JYOTI: Not Applicable Prescriptions: oxyCODONE HCl/Acetaminophen [Percocet 5-325 mg Tablet] 1 - 2 each PO Q4H PRN #20 tablet PRN Reason: pain relief. Doxycycline [Vibra-Tabs] 100 mg PO Q12HR #14 tab Instructions: Wound Care, Adult Referrals: PCP,Not In Area [Primary Care Provider] - Forms: ED Department Discharge Additional Instructions: Evaluation in the emergency room today in regards to persistent oozing of blood from the superior portion of midline surgical wound right knee. He had undergone surgery yesterday with Dr. Maricarmen Guy orthopedic surgeon at [facility] in [place] for patellofemoral realignment procedure. Surgical wounds lateral and medial to the knee have been performed with arthroscopic surgery and are not actively bleeding. Bleeding is coming from the superior portion of the surgical wound inferior to the kneecap. The area was anesthetized with 1% lidocaine and sutured under local anesthetic x 3 sutures to provide wound closure and to stop the bleeding. The other parts of the wound are closed with Dermabond. The need to dress the wounds daily with cleansing of the wounds with soap and water. Then apply topical antibiotic to the surgical wounds such as bacitracin or Polysporin and cover with a bandage to keep clean. Knee brace is to be locked in full extension. Sutures placed today will need to be removed in 10 days time. Please make an appoint with your primary care physician to have this performed. Sepsis Event Note (ED) - Evaluation Sepsis Screening Result: No Definite Risk - Focused Exam Vital Signs: Vital Signs Temp Pulse Resp BP Pulse Ox 01/02/21 07:52 36.4 C 93 18 123/65 99
== END 2021-01-02 09:00 | disposition home or self-care (01) ==
LOC: JD.ED 07:44
DX: M96.830 Postprocedural hemorrhage of a musculoskeletal structure following a musculoskeletal system procedure (principal); S81.811A Laceration without foreign body, right lower leg, initial encounter; E66.9 Obesity, unspecified; Z68.30 Body mass index [BMI] 30.0-30.9, adult; Z72.0 Tobacco use; W18.39XA Other fall on same level, initial encounter
CPT/HCPCS: 12020; 99282-25

== ENCOUNTER 2021-01-26 11:09 | Emergency (ER) | payer OTHER ==
[2021-01-26] MEDS ORDERED: Ketorolac 30 MG/ML SDV IVPUSH ONE (11:49)
[2021-01-26] MEDS ORDERED: Sodium Chloride 0.9% 1,000 ML IV STA (11:49)
[2021-01-26] MEDS ORDERED: Ondansetron 4 MG/2 ML SDV IVPUSH ONE (11:49)
[2021-01-26] MEDS ORDERED: Sodium Chloride 0.9% 10 ML Syringe FLUSH PRN (11:50)
[2021-01-26] MEDS ORDERED: diphenhydrAMINE 50 MG/ML SDV IVPUSH ONE (11:50)
--- NOTE | 2021-01-26 12:25 | CT ---
Head CT Technique: Multiple axial sections through the brain were obtained. Intravenous contrast was not utilized. Reconstructed coronal and sagittal images were obtained. Comparison: No prior intracranial imaging is available. Findings: Ventricles along with basal cisterns and sulci over the convexities are within normal limits for the patient's age. No abnormal parenchymal densities are seen. No evidence of intracranial hemorrhage is seen. No midline shift or mass-effect is seen. Bone window settings were reviewed. Visualized mastoid sinuses and paranasal sinuses show nothing acute. Minimal mucosal thickening is incidentally noted within the posterior left ethmoid sinus. No acute calvarial abnormality is appreciated. Impression: 1. Minimal sinus finding is seen and believed to be incidental. 2. Nothing acute is appreciated on noncontrast head CT study. Diagnostic code #1
[2021-01-26] MEDS ORDERED: HYDROmorphone 0.5 MG/0.5 ML Syringe IVPUSH ONE ×2 (13:25→14:14)
[2021-01-26] MEDS ORDERED: Acetaminophen 325 MG Tab PO ONE (15:24)
--- NOTE | 2021-01-26 15:25 | EDM.PDOC ---
ED HPI GENERAL MEDICAL PROBLEM - General Chief Complaint: Headache Stated Complaint: HEADACHE Time Seen by Provider: 01/26/21 11:18 Source of Information: Reports: Patient, RN Notes Reviewed History Limitations: Reports: No Limitations - History of Present Illness INITIAL COMMENTS - FREE TEXT/NARRATIVE: Patient is a 30-year-old female presenting to the emergency department with complaints of migraine headache since January 15. She is using number different medications including Maxalt, Celebrex, Tylenol, ibuprofen, and Naprosyn. The most that has improved his for couple hours then it returns. Reports that she goes to bed with a headache and wakes with a headache. She has a history of migraines but they are generally not this severe. She feels nauseous but has had no vomiting. Does report light sensitivity. Primary care providers Peggy Felton. She does not see a neurologist. Denies any recent head injuries. Frontal Headache Pain Score (Numeric/FACES): 7 - Related Data Allergies Allergy/AdvReac Type Severity Reaction Status Date / Time No Known Allergies Allergy Verified 01/02/21 07:55 Home Meds: Home Meds Cyclobenzaprine [Flexeril] 10 mg PO ASDIRECTED 08/12/20 [History] Ibuprofen 600 mg PO Q6H PRN 08/12/20 [History] FLUoxetine [PROzac] 40 mg PO DAILY 08/14/20 [History] Propranolol HCl [Propranolol] 10 mg PO BID PRN 08/14/20 [History] lamoTRIgine [Lamictal] 200 mg PO DAILY 09/08/20 [History] Naproxen [Naprosyn] 500 mg PO BID PRN 01/02/21 [History] Celecoxib [CeleBREX] 200 mg PO DAILY 01/26/21 [History] Maxalt 10 mg PO DAILY 01/26/21 [History] Nicotine Polacrilex [Nicotine Gum] 2 mg PO ASDIRECTED 01/26/21 [History] Nicotine [Nicotine Patch] 7 mg TOP DAILY 01/26/21 [History] diazePAM [Valium] 5 mg PO ASDIRECTED 01/26/21 [History] polyethylene glycoL 3350 [Miralax] 17 gram PO DAILY 01/26/21 [History] Past Medical History - Past Health History Medical/Surgical History: Denies 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: Musculoskeletal History: Reports: Arthritis Neurological History: Reports: Migraines Psychiatric History: Reports: Anxiety, Bipolar, Depression, Panic Attack, PTSD Endocrine/Metabolic History: Reports: Obesity/BMI 30+ - Infectious Disease History Infectious Disease History: Reports: Herpes - Past Surgical History HEENT Surgical History: Reports: Oral Surgery Female Surgical History: Reports: Hysterectomy Social & Family History - Family History Family Medical History: No Pertinent Family History - Tobacco Use Tobacco Use Status *Q: Never Tobacco User Second Hand Smoke Exposure: No - Caffeine Use Caffeine Use: Reports: Soda Other Caffeine Use: two daily - Recreational Drug Use Recreational Drug Use: No - Living Situation & Occupation Living situation: Reports: , with Spouse, with Family (2 kids) Occupation: Unemployed ED ROS GENERAL - Review of Systems Review Of Systems: Comprehensive ROS is negative, except as noted in HPI. - Physical Exam Exam: See Below General Appearance: Alert, WD/WN, No Apparent Distress Eye Exam: Bilateral Eye: Normal Inspection, PERRL Head Exam: Atraumatic, Normocephalic Respiratory/Chest: No Respiratory Distress, Lungs Clear, Normal Breath Sounds, No Accessory Muscle Use, Chest Non-Tender Cardiovascular: Normal Peripheral Pulses, Regular Rate, Rhythm, No Edema, No Gallop, No JVD, No Murmur, No Rub GI/Abdominal: Normal Bowel Sounds, Soft, Non-Tender, No Organomegaly, No Distention, No Abnormal Bruit, No Mass Neuro Exam (Abbreviated): Alert, Oriented, CN II-XII Intact, Normal Cognition, Normal Gait, Normal Reflexes, No Motor/Sensory Deficits Psychiatric: Normal Affect, Normal Mood Skin Exam: Warm, Dry, Intact, Normal Color, No Rash Course - Vital Signs Last Recorded V/S: Last Vital Signs Temp 97.8 F 01/26/21 11:29 Pulse 83 01/26/21 11:29 Resp 20 01/26/21 11:29 BP 123/78 01/26/21 11:29 Pulse Ox 97 01/26/21 11:29 - Orders/Labs/Meds Labs: Laboratory Tests 01/26/21 01/26/21 Range/Units 12:30 12:30 WBC 7.63 (3.98-10.04) K/mm3 RBC 4.52 (3.98-5.22) M/mm3 Hgb 14.0 D (11.2-15.7) gm/dl Hct 41.8 (34.1-44.9) % MCV 92.5 D (79.4-94.8) fl MCH 31.0 (25.6-32.2) pg MCHC 33.5 (32.2-35.5) g/dl RDW Std Deviation 43.0 (36.4-46.3) fL Plt Count 322 (182-369) K/mm3 MPV 10.2 (9.4-12.3) fl Neut % (Auto) 63.7 (34.0-71.1) % Lymph % (Auto) 21.4 (19.3-51.7) % [place] % (Auto) 13.5 H (4.7-12.5) % Eos % (Auto) 0.7 (0.7-5.8) Baso % (Auto) 0.4 (0.1-1.2) % Neut # (Auto) 4.87 (1.56-6.13) K/mm3 Lymph # (Auto) 1.63 (1.18-3.74) K/mm3 [place] # (Auto) 1.03 H (0.24-0.36) K/mm3 Eos # (Auto) 0.05 (0.04-0.36) K/mm3 Baso # (Auto) 0.03 (0.01-0.08) K/mm3 Sodium 143 (136-145) mEq/L Potassium 3.7 (3.5-5.1) mEq/L Chloride 107 (98-107) mEq/L Carbon Dioxide 27 (21-32) mEq/L Anion Gap 12.7 (5-15) BUN 13 (7-18) mg/dL Creatinine 0.9 (0.55-1.02) mg/dL Est Cr Clr Drug Dosing 87.12 mL/min Estimated GFR (MDRD) > 60 (>60) mL/min BUN/Creatinine Ratio 14.4 (14-18) Glucose 80 (70-99) mg/dL Calcium 9.0 (8.5-10.1) mg/dL Magnesium 2.0 (1.8-2.4) mg/dL Total Bilirubin 0.5 (0.2-1.0) mg/dL AST 45 H (15-37) U/L ALT 39 (14-59) U/L Alkaline Phosphatase 115 (46-116) U/L Total Protein 7.1 (6.4-8.2) g/dl Albumin 3.9 (3.4-5.0) g/dl Globulin 3.2 gm/dL Albumin/Globulin Ratio 1.2 (1-2) Meds: Medications Discontinued Medications Generic Name Dose Route Start Last Admin Trade Name Freq PRN Reason Stop Dose Admin Acetaminophen 650 mg 01/26/21 15:24 01/26/21 15:54 Acetaminophen 325 Mg Tab PO 01/26/21 15:25 650 mg NOW ONE Administration Diphenhydramine HCl 50 mg 01/26/21 11:50 01/26/21 12:27 Diphenhydramine 50 Mg/Ml Sdv IVPUSH 01/26/21 11:51 50 mg ONETIME ONE Administration Hydromorphone HCl 0.5 mg 01/26/21 13:25 01/26/21 13:47 Hydromorphone 0.5 Mg/0.5 Ml Syringe IVPUSH 01/26/21 13:26 0.5 mg ONETIME ONE Administration Hydromorphone HCl 0.5 mg 01/26/21 14:14 01/26/21 14:25 Hydromorphone 0.5 Mg/0.5 Ml Syringe IVPUSH 01/26/21 14:15 0.5 mg ONETIME ONE Administration Sodium Chloride 1,000 mls @ 999 mls/hr 01/26/21 11:49 01/26/21 12:25 Normal Saline IV 01/26/21 12:49 999 mls/hr NOW STA Administration Ketorolac Tromethamine 30 mg 01/26/21 11:49 01/26/21 12:27 Ketorolac 30 Mg/Ml Sdv IVPUSH 01/26/21 11:50 30 mg ONETIME ONE Administration Ondansetron HCl 4 mg 01/26/21 11:49 01/26/21 12:27 Ondansetron 4 Mg/2 Ml Sdv IVPUSH 01/26/21 11:50 4 mg ONETIME ONE Administration Sodium Chloride 10 ml 01/26/21 11:50 01/26/21 12:26 Sodium Chloride 0.9% 10 Ml Syringe FLUSH 10 ml ASDIRECTED PRN Administration Keep Vein Open - Re-Assessments/Exams Free Text/Narrative Re-Assessment/Exam: Patient is a 30-year-old female presenting to the emergency part with complaints of migraine headache. She does have a history, however this is lasting longer than normal. I have ordered blood work, head CT, fluids, Toradol, Zofran, and Benadryl. 01/26/21 1330 Patient reports little improvement in her symptoms. I ordered Dilaudid 0.5 mg IV. 01/26/21 1415 She reports the Dilaudid did help slightly but it is still fairly significant. I ordered a second dose of Dilaudid 0.5 mg IV. 01/26/21 15:24 Patient reports that her headache is much improved. It is still present behind her eyes. We will give her some Tylenol and have her go home and rest. Recommend follow-up with her primary care tomorrow. Discharge instructions as documented. Departure - Departure Time of Disposition: 15:24 Disposition: Home, Self-Care 01 Condition: Good Clinical Impression: Migraine - Discharge Information *PRESCRIPTION DRUG MONITORING PROGRAM REVIEWED*: No *COPY OF PRESCRIPTION DRUG MONITORING REPORT IN PATIENT JYOTI: No Instructions: Migraine Headache, [id number] Referrals: Peggy Felton PA-C [Primary Care Provider] - Forms: ED Department Discharge Additional Instructions: You were seen in the emergency department today for migraine headache. While in the ER, you received IV fluids and pain medications. This did improve your symptoms. Recommend you go home and rest. Follow-up with your primary care provider tomorrow to discuss ongoing management of your migraines. Return to ER as needed. Sepsis Event Note (ED) - Evaluation Sepsis Screening Result: No Definite Risk
== END 2021-01-26 15:51 | disposition home or self-care (01) ==
LOC: JD.ED 11:09
DX: G43.909 Migraine, unspecified, not intractable, without status migrainosus (principal); E66.9 Obesity, unspecified; Z68.33 Body mass index [BMI] 33.0-33.9, adult
CPT/HCPCS: 36415; 70450; 80053; 83735; 85025; 96374; 96375; 96376; 99284; A9270; J1170; J1200; J1885; J2405; J7030

== ENCOUNTER 2021-03-13 09:25 | Emergency (ER) | payer OTHER ==
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
[2021-03-13 11:19] LABS: ACETAMINOPHEN 0 ug/mL (10-30)
== END 2021-03-13 18:10 ==
LOC: JD.ED 09:25
DX: T50.902A Poisoning by unspecified drugs, medicaments and biological substances, intentional self-harm, initial encounter (principal); F32.9 Major depressive disorder, single episode, unspecified; F41.9 Anxiety disorder, unspecified; E66.9 Obesity, unspecified; Z68.30 Body mass index [BMI] 30.0-30.9, adult; Z72.0 Tobacco use; Z20.822 Contact with and (suspected) exposure to COVID-19; Z79.899 Other long term (current) drug therapy
CPT/HCPCS: 36415; 80053; 80143; 80179; 80306; 80307; 81025; 84443; 85007; 85027; 93005; 99283; 99285; U0002